=== PATIENT | female | born 1970 | race African-American/Black ===

== ENCOUNTER → 2016-07-24 | Outpatient (REF) | payer OTHER ==
[2016-07-24 11:33] LABS: BASO % 0.5 % (0.0-1.0); EOS # 0.3 K/mm3 (0.0-0.50); EOS % 3.7 % (0.0-3.0); LARGE UNSTAINED CELL # 0.2 K/mm3 (0.0-0.4); LARGE UNSTAINED CELL % 2.1 % (0.0-4.0); MEAN CORPUSCULAR HEMOGLOBIN 28.5 pg (27.0-33.0); MEAN CORPUSCULAR HGB CONC 32.8 g/dl (32.0-36.5); MONO # 0.4 K/mm3 (0.0-0.8); MONO % 4.5 % (0.0-5.0); NEUTROPHILS # 4.9 K/mm3 (1.8-7.7); NEUTROPHILS % 63.2 % (36.0-66.0); PLATELET COUNT, AUTOMATED 265 k/mm3 (150-450); RED CELL DISTRIBUTION WIDTH 12.7 % (11.5-14.5); WHITE BLOOD COUNT 7.8 K/mm3 (4.0-10.0)
[2016-07-24 11:58] LABS: ERYTHROCYTE SEDIMENTATION RATE 24 mm/hr (0-20)
[2016-07-24 12:18] LABS: ALBUMIN 3.7 GM/DL (3.2-5.2); ALBUMIN/GLOBULIN RATIO 1.03 (1.00-1.93); ALKALINE PHOSPHATASE 81 U/L (45-117); ALT/SGPT 21 U/L (12-78); ANION GAP 8 MEQ/L (8-16); AST/SGOT 13 U/L (15-37); BILIRUBIN,TOTAL 0.4 MG/DL (0.2-1.0); BLOOD UREA NITROGEN 11 MG/DL (7-18); CARBON DIOXIDE LEVEL 28 MEQ/L (21-32); CHLORIDE LEVEL 103 MEQ/L (98-107); GLOMERULAR FILTRATION RATE > 60.0 (>58); GLUCOSE, FASTING 103 MG/DL (70-105); POTASSIUM SERUM 3.5 MEQ/L (3.5-5.1); SODIUM LEVEL 139 MEQ/L (136-145); TOTAL PROTEIN 7.3 GM/DL (6.4-8.2)
== END ==
LOC: M LABNEURO 10:44
PROVIDERS: ATTEND Psychiatry & Neurology Neurology
DX: R51 Headache (principal)

== ENCOUNTER → 2016-12-25 | Outpatient (CLI) | payer OTHER ==
--- NOTE | 2016-12-26 03:37 | REP ---
Clinical: Suprapatellar pain. Technique: AP, lateral views of the right knee. Findings: Osseous structures, joint spaces, and surrounding soft tissues are normal for age. No obvious effusion. No obvious suprapatellar collection. Prepatellar soft tissues appear normal. Impression: Normal, age-appropriate right knee radiographs. Signed by Pj Nava MD 12/26/2016 03:28 A
== END ==
LOC: M LRY 14:29
PROVIDERS: ATTEND Family Medicine
DX: M70.51 Other bursitis of knee, right knee (principal)
CPT/HCPCS: 73560; G0463

== ENCOUNTER → 2017-01-27 | Outpatient (CLI) | payer OTHER ==
--- NOTE | 2017-02-03 16:34 | REPMRS ---
Patient History The patient states she had a clinical breast exam in 2016. Family history of breast cancer in 2 paternal aunts and prostate cancer in paternal uncle. Patient states she had a negative right breast bx in 2016. File area calling for out of states priors Digital Mammo Screening Bilat: January 27, 2017 - Exam #: [id number] Bilateral CC and MLO view(s) were taken. Technologist: Charlotte Lindquist, Technologist Prior study comparison: January 25, 2016, digital bilateral screening mammo, performed at [facility]. FINDINGS: The breast tissue is heterogeneously dense. This may lower the sensitivity of mammography. There is a moderate amount of heterogeneously dense fibroglandular tissue which is fairly symmetric. There is no interval development of dominant mass, architectural distortion, or clustered microcalcification typical of malignancy. There has been no change in the appearance of the mammogram from the prior studies. ASSESSMENT: BI-RADS/ACR category 1 mammogram. Negative. Recommendation Routine screening mammogram of both breasts in 1 year (for women over age 40). This mammogram was interpreted with the aid of an FDA-approved computer-aided dectection system. Electronically Signed By: Roosevelt Amaya MD 02/03/17 1950
== END ==
LOC: M RAD 11:28
PROVIDERS: ATTEND Family Medicine
DX: Z12.31 Encounter for screening mammogram for malignant neoplasm of breast (principal)

== ENCOUNTER → 2017-05-06 | Outpatient (REF) | payer OTHER | LOC: M SFHCLERA 14:11 | PROVIDERS: ATTEND Nurse Practitioner Family | DX: R30.0 Dysuria (principal) ==

== ENCOUNTER 2017-06-06 14:09 | Emergency (ER) | payer OTHER ==
[~2017-06-06] VITALS: Ht 160 cm; Wt 77.3 kg
[2017-06-06 14:10] VITALS: BP 152/94
[2017-06-06] MEDS ORDERED: AMLO10TA2 PO (14:28)
[2017-06-06] MEDS ORDERED: VENL75TA2 PO (14:28)
[2017-06-06] MEDS ORDERED: FERR83TA2 PO (14:28)
[2017-06-06] MEDS ORDERED: VITA500046 PO (14:28)
[2017-06-06] MEDS ORDERED: FLOV100A3 INH (14:28)
[2017-06-06] MEDS ORDERED: TRIAMT/HCTZ PO (14:28)
[2017-06-06] MEDS ORDERED: LANS30CA PO (14:28)
[2017-06-06] MEDS ORDERED: FLUT22IN INH (14:28)
[2017-06-06] MEDS ORDERED: LOSA50TA20 PO (14:28)
== END 2017-06-06 16:18 | disposition left against medical advice (07) ==
LOC: M ED 14:09
DX: Z53.21 Procedure and treatment not carried out due to patient leaving prior to being seen by health care provider (principal)

== ENCOUNTER → 2017-09-18 | Outpatient (CLI) | payer OTHER | LOC: M LRY 14:14 | DX: E04.2 Nontoxic multinodular goiter (principal); E04.9 Nontoxic goiter, unspecified (principal) | CPT/HCPCS: 76536; G0463 ==

== ENCOUNTER → 2017-10-09 | Outpatient (REF) | payer OTHER ==
[2017-10-09 17:27] LABS: TOTAL 25(OH) VITAMIN D 61.5 NG/ML (30.0-100.0)
[2017-10-09 17:30] LABS: CHOLESTEROL LEVEL 148 MG/DL (<200); CHOLESTEROL RISK RATIO 3.148 (<5); FREE T4 0.97 NG/DL (0.76-1.46); GLUCOSE, FASTING 98 MG/DL (70-100); HDL CHOLESTEROL 47 MG/DL (>40); IRON (FE) 65 UG/DL (50-170); LDL CHOLESTEROL 85.8 MG/DL (<100); NON-HDL-C 101 MG/DL; PERCENT SATURATION 21.7 % (13.2-45.0); THYROID STIMULATING HORMONE 0.376 uIU/ML (0.358-3.740); TOTAL IRON BINDING CAPACITY 299 UG/DL (250-450); TRIGLYCERIDES LEVEL 76 MG/DL (<150)
[2017-10-09 19:19] LABS: HEMATOCRIT 40.2 % (36.0-47.0); HEMOGLOBIN 12.9 g/dl (12.0-16.0); MEAN CORPUSCULAR HEMOGLOBIN 28.4 pg (27.0-33.0); MEAN CORPUSCULAR HGB CONC 32.1 g/dl (32.0-36.5); MEAN CORPUSCULAR VOLUME 88.4 fl (80.0-96.0); PLATELET COUNT, AUTOMATED 258 10^3/uL (150-450); RED BLOOD COUNT 4.55 10^6/uL (4.00-5.40); RED CELL DISTRIBUTION WIDTH 12.6 % (11.5-14.5); WHITE BLOOD COUNT 6.8 10^3/uL (4.0-10.0)
== END ==
LOC: M SFHCLERA 10:26
DX: E04.9 Nontoxic goiter, unspecified (principal); Z13.1 Encounter for screening for diabetes mellitus; Z13.220 Encounter for screening for lipoid disorders; E55.9 Vitamin D deficiency, unspecified; E61.1 Iron deficiency
CPT/HCPCS: 82947

== ENCOUNTER → 2018-02-02 | Outpatient (CLI) | payer OTHER | LOC: M LRY 16:20 | DX: R05 Cough (principal) | CPT/HCPCS: 71046; G0463 ==

== ENCOUNTER → 2018-09-07 | Outpatient (CLI) | payer OTHER ==
[~2018-09-07] MED LIST: AMLO10TA5 PO; FERR83TA2 PO; FLOV100A3 INH; FLUT22IN INH; LANS30CA PO; LOSA50TA88 PO; TRIAMT/HCTZ PO; VENL75TA2 PO; VITA500046 PO
--- NOTE | 2018-09-08 07:20 | REP ---
Clinical: Abnormal uterine bleeding . Technique: Transabdominal pelvic ultrasound followed by transvaginal examination for better evaluation of the endometrium and adnexa. Findings: Bladder is unremarkable and measures 8.6 x 4.6 x 5.2 cm . Heterogeneous myomatous uterus measures 10.9 x 6.1 x 7.8 cm and includes 4.5 cm right intramural / subserosal fibroid, 1.5 cm left posterior subserosal fibroid, and 1.9 cm anterior intramural fibroid. The endometrial complex measures 21.4 mm thickness. No discrete uterine or endometrial abnormalities are appreciated. Bilateral ovaries are identified by transabdominal imaging only and appear normal. Right ovary measures 3.6 x 2.9 x 2.7 cm. Left ovary measures 2.6 x 2.2 x 1.7 cm. No pelvic fluid or adnexal mass lesion identified . Impression: 1. Enlarged heterogeneous myomatous uterus with thickened endometrial complex. Electronically Signed by Pj Nava MD 09/08/2018 07:11 A
== END ==
LOC: M RAD 17:06
PROVIDERS: ATTEND Nurse Practitioner Family
DX: N93.9 Abnormal uterine and vaginal bleeding, unspecified (principal)

== ENCOUNTER → 2018-09-21 | Outpatient (REF) | payer OTHER ==
[2018-09-24 14:24] LABS: HPV HYBRID CAPTURE II Negative (Negative)
== END ==
LOC: M LAB REF 09:23
PROVIDERS: ATTEND Obstetrics & Gynecology
DX: Z12.4 Encounter for screening for malignant neoplasm of cervix (principal)

== ENCOUNTER → 2018-09-24 | Outpatient (REF) | payer OTHER ==
[2018-09-24 20:51] LABS: FREE T4 1.14 NG/DL (0.76-1.46); THYROID STIMULATING HORMONE 0.303 uIU/ML (0.358-3.740)
== END ==
LOC: M SFHCLERA 16:16
PROVIDERS: ATTEND Family Medicine
DX: R79.89 Other specified abnormal findings of blood chemistry (principal)

== ENCOUNTER → 2018-10-15 | Outpatient (REF) | payer OTHER | LOC: M LAB REF 18:15 | PROVIDERS: ATTEND Obstetrics & Gynecology | DX: N93.9 Abnormal uterine and vaginal bleeding, unspecified (principal) ==

== ENCOUNTER → 2018-11-11 | Outpatient (CLI) | payer OTHER ==
--- NOTE | 2018-11-11 15:29 | REP ---
BILATERAL LOWER EXTREMITY DUPLEX DOPPLER VENOUS ULTRASOUND WITH EVALUATION FOR VENOUS REFLUX: Real-time compression and duplex Doppler interrogation of bilateral lower extremity deep venous systems is performed. Bilateral, common femoral, superficial femoral and popliteal veins are fully compressible with transducer pressure and demonstrate normal spontaneous and phasic flow without evidence of deep venous thrombosis. Evaluation for venous reflux is performed bilaterally. On the right there is no reflux in any of the deep veins. There is no evidence of an anterior accessory greater saphenous vein. There is no reflux in any portion of the greater saphenous vein, which measures 7 mm at the saphenofemoral junction, 5 mm at the midthigh, and 2 mm at the knee. There is no reflux in the lesser saphenous vein which measures 2 mm. Collateral vein communicates with the mid thigh greater saphenous vein with mild reflux in that collateral vein. On the left there is no reflux in any of the deep veins nor in any portion of the greater saphenous vein, which measures 7 mm at the saphenofemoral junction and 4 mm at the midthigh and knee. There is no reflux in the lesser saphenous vein. Electronically Signed by Carter Mayberry MD 11/12/2018 11:00 A
== END ==
LOC: M RAD 12:42
PROVIDERS: ATTEND Surgery Vascular Surgery
DX: Z86.79 Personal history of other diseases of the circulatory system (principal)

== ENCOUNTER → 2018-12-11 | Outpatient (CLI) | payer OTHER ==
--- NOTE | 2018-12-11 10:22 | REP ---
BILATERAL LOWER EXTREMITY DUPLEX DOPPLER ARTERIAL ULTRASOUND: Real-time ultrasound evaluation and duplex Doppler interrogation of the bilateral lower extremity arterial systems is performed. LISA right is 1.06 and left 1.0. Biphasic and triphasic wave forms are seen diffusely bilaterally in the lower extremity arterial systems. No significant plaquing or narrowing is seen and there is certainly no duplex Doppler sonographic evidence of hemodynamically significant stenosis. Right peak systolic velocity Left peak systolic velocity Femoral artery 130 cm/s 129 cm/s Profunda 80.8 76.7 Proximal SFA 93.2 78.3 Mid SFA 90.2 80.0 Distal SFA 91.0 67.2 Popliteal 50.8 47.1 Proximal SURJIT 53.5 38.0 Tibioperoneal trunk 58.4 43.6 Proximal [employer]IST 71.7 25.6 Distal [employer]IST 43.2 37.4 Distal SURJIT 55.9 57.7 IMPRESSION: No significant plaquing or narrowing bilaterally. No hemodynamically significant stenosis of bilateral lower extremity arterial systems. Electronically Signed by Carter Mayberry MD 12/15/2018 09:56 A
== END ==
LOC: M RAD 08:35
PROVIDERS: ATTEND Physician Assistant
DX: M79.604 Pain in right leg (principal); M79.605 Pain in left leg

== ENCOUNTER → 2019-01-13 | Outpatient (CLI) | payer OTHER ==
--- NOTE | 2019-01-13 15:31 | REPMRS ---
Patient History The patient states she has not had a clinical breast exam in over a year. Family history of breast cancer in paternal aunt, breast cancer in paternal aunt, prostate cancer in paternal uncle. Digital Mammo Screening Bilat: January 13, 2019 - Exam #: [id number] Bilateral CC and MLO view(s) were taken. Technologist: Charlotte Lindquist, Technologist Prior study comparison: January 27, 2017, bilateral digital mammo screening bilat performed at [facility]. January 25, 2016, digital bilateral screening mammo, performed at [facility]. FINDINGS: The breast tissue is heterogeneously dense. This may lower the sensitivity of mammography. Additionally, the prior study of 12/08/2013 is reviewed. Bilateral screening digital mammogram with tomosynthesis: The patient states that there are no parpable breast lumps or other breast complaints. The patient's [place] Lifetime Breast Carcinoma Risk is:13.9%. There has been no interval development of dominant mass, area of adchitectural distortion, or clustered microcalcifications typical of malignancy. . There are no additional findings with tomosynthesis. No significant changes when compared with prior studies. Assessment: BI-RADS/ACR category 1 mammogram. Negative Mammogram. In addition, annual MRI is recommended for women with dense breast parenchyma. Recommendation Routine screening mammogram in 1 year. Electronically Signed By: Carter Juárez M.D. 01/13/19 0034
== END ==
LOC: M RAD 13:03
PROVIDERS: ATTEND Family Medicine
DX: Z12.31 Encounter for screening mammogram for malignant neoplasm of breast (principal)